=== PATIENT | female | born 1955 | race Caucasian/White ===

== ENCOUNTER 2016-09-26 20:26 | Emergency (ER) | payer OTHER ==
--- NOTE | 2016-09-26 22:58 | ED ORDER SUMMARY ---
..... Patient: FLETCHER WRIGHT OrderSheet [facility] VisitID: [id number] [address] [place] [address] 61y, F Registration Date/Time: 09/26/2016 ORDER SHEET Weight: 68.9 kg (stated) Allergies: Codeine, Oxycodone, Sulfa Antibiotics GENERAL ORDERS: UA-Culture if indicated Urgent (20:48 09/26/2016 Cesia R.NRenu per protocol) ([facility] 20:58 Nathanael GILBERT Brick Cleaner) (21:00 Cesia R.N.) MEDICATION ORDERS: IV FLUIDS: ORDER SHEET NOTES: [Electronically signed by Qing Frias R.N. (23:04 09/26/2016)] [Electronically signed by Lauryn Bhatia (23:05 09/26/2016)] [Electronically locked/signed by Qing Frias R.N. (23:04 09/26/2016)]
--- NOTE | 2016-09-26 22:58 | ED ORDER SUMMARY ---
..... Patient: FLETCHER WRIGHT OrderSheet [facility] VisitID: [id number] [address] [place] [address] 61y, F Registration Date/Time: 09/26/2016 ORDER SHEET Weight: 68.9 kg (stated) Allergies: Codeine, Oxycodone, Sulfa Antibiotics GENERAL ORDERS: UA-Culture if indicated Urgent (20:48 09/26/2016 Cesia R.NRenu per protocol) ([facility] 20:58 Nathanael GILBERT Regulatory Affairs Strategy Specialist) (21:00 Cesia R.N.) MEDICATION ORDERS: IV FLUIDS: ORDER SHEET NOTES: [Electronically signed by Qing Frias R.N. (23:04 09/26/2016)] [Electronically signed by Lauryn Bhatia (23:05 09/26/2016)] [Electronically locked/signed by Qing Frias R.N. (23:04 09/26/2016)]
--- NOTE | 2016-09-26 22:58 | ED NURSING NOTES ---
Clinical Report - Nurses [facility] [address] [place] [address] 09/26/2016 20:28 Patient: FLETCHER WRIGHT TRIAGE Triage time 20:38. Acuity: LEVEL 4. Chief Complaint: DYSURIA, URINARY URGENCY, URINARY FREQUENCY and FLANK PAIN. Alert. No acute distress. --20:47 Qing Frias R.N. 20:37 09/26/16. BP: 151/75. HR: 83. RR: 15 (regular and unlabored). O2 saturation: 100% on room air. Temp: 98.4 F (oral). Pain level now: 06/14. --20:47 Qing Frias R.N. Weight: 68.9 kg stated. Height/Length: 60 inches Per Patient. BMI: 29.7. --20:44 Qing Frias R.N. Medications Advil Oral, at bedtime, PM . --20:46 Qing Frias R.N. Allergies Codeine.(Anaphylaxis) --20:46 Qing Frias R.N. Oxycodone. Sulfa Antibiotics. --20:46 Qing Frias R.N. History <<STRICKEN ENTRY-- Arrived by private vehicle. Historian: patient. Accompanied by spouse. Primary physician (Leann). This started today. Onset. (dysuria began 32 days ago, pain began tonight). Treatment DIABETOLOGIST: (Aleve (last dose today at 1900),). PAST MEDICAL HX: Immunizations: status is unknown. SOCIAL HX: Heavy tobacco smoker (cigarette)- less than 1 pack per day. Occasional alcohol use. No drug use. NUTRITIONAL RISK ASSESSMENT: The nutritional risk assessment revealed no deficiencies. FUNCTIONAL ASSESSMENT: Functional assessment: no impairments noted. --20:47 Qing Frias R.N. --END STRIKE>> Correction --20:48 Qing Frias R.N. Arrived by private vehicle. Historian: patient. Accompanied by spouse. Primary physician (Leann). This started today. Onset. (dysuria began 3 days ago, pain began tonight). Treatment DIABETOLOGIST: (Aleve (last dose today at 1900),). PAST MEDICAL HX: Immunizations: status is unknown. SOCIAL HX: Heavy tobacco smoker (cigarette)- less than 1 pack per day. Occasional alcohol use. No drug use. NUTRITIONAL RISK ASSESSMENT: The nutritional risk assessment revealed no deficiencies. FUNCTIONAL ASSESSMENT: Functional assessment: no impairments noted. --20:48 Qing Frias R.N. ADDITIONAL SURGERIES: Shoulder Surgery. --20:49 Qing Frias R.N. Interventions ID band on patient. To treatment room. --20:47 Qing Frias R.N. PHYSICAL ASSESSMENT Ambulatory to room. Patient gowned. GENERAL / NEURO / PSYCH: Alert. Oriented X 4. Appears in no acute distress. HEENT: Mucous membranes are pink. RESPIRATORY: Respirations not labored. CVS: Capillary refill less than 2 seconds. SKIN: Skin is warm and dry. --20:47 Qing Frias R.N. NURSING PROGRESS NOTES Head of bed elevated. Two patient identifiers checked. Call light placed in reach. Side rails up x 1. Bed placed in lowest position. Brakes of bed on. --20:47 Qing Frias R.N. Patient ready for evaluation- chart flagged. --20:47 Qing Frias R.N. Patient ID band checked for patient name and birthdate: patient confirmed. Instructions provided to collect clean catch urine and patient verbalized understanding. Clean catch urine collected with return of yellow-colored clear urine; sample sent to lab. Specimen labeled in the presence of the patient. --20:52 Qing Frias R.N. 22:05 09/26/16. BP: 130/69. HR: 73. RR: 15 (regular and unlabored). O2 saturation: 100% on room air. --22:06 Qing Frias R.N. 22:33- pt ambulates to restroom. --22:33 Qing Frias R.N. DISPOSITION / DISCHARGE Condition at departure: stable. No learning barriers present. Discharge instructions provided and reviewed with the patient. Reviewed medication(s) side effects, precautions, dosing and course information. Prescription(s) given to the patient. Patient verbalized understanding. Written instructions provided in Togolese. The patient was discharged home and accompanied by spouse. She left the Emergency Department ambulatory and via private vehicle. Spouse driving. --23:04 Qing Frias R.N. 23:00 09/26/16. BP: 123/65. HR: 74. RR: 15. O2 saturation: 99% on room air. Temp: deferred. Whitten-Bull pain scale: 2/10. --23:04 Qing Frias R.N. Locked/Released at 09/26/2016 23:04 by Qing Frias R.N.
--- NOTE | 2016-09-26 22:58 | ED NURSING NOTES ---
Clinical Report - Nurses [facility] [address] [place] [address] 09/26/2016 20:28 Patient: FLETCHER WRIGHT TRIAGE Triage time 20:38. Acuity: LEVEL 4. Chief Complaint: DYSURIA, URINARY URGENCY, URINARY FREQUENCY and FLANK PAIN. Alert. No acute distress. --20:47 Qing Frias R.N. 20:37 09/26/16. BP: 151/75. HR: 83. RR: 15 (regular and unlabored). O2 saturation: 100% on room air. Temp: 98.4 F (oral). Pain level now: 06/14. --20:47 Qing Frias R.N. Weight: 68.9 kg stated. Height/Length: 60 inches Per Patient. BMI: 29.7. --20:44 Qing Frias R.N. Medications Advil Oral, at bedtime, PM . --20:46 Qing Frias R.N. Allergies Codeine.(Anaphylaxis) --20:46 Qing Frias R.N. Oxycodone. Sulfa Antibiotics. --20:46 Qing Frias R.N. History <<STRICKEN ENTRY-- Arrived by private vehicle. Historian: patient. Accompanied by spouse. Primary physician (Leann). This started today. Onset. (dysuria began 32 days ago, pain began tonight). 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 PAST MEDICAL HX: Immunizations: status is unknown. SOCIAL HX: Heavy tobacco smoker (cigarette)- less than 1 pack per day. Occasional alcohol use. No drug use. NUTRITIONAL RISK ASSESSMENT: The nutritional risk assessment revealed no deficiencies. FUNCTIONAL ASSESSMENT: Functional assessment: no impairments noted. --20:47 Qing Frias R.N. --END STRIKE>> Correction --20:48 Qing Frias R.N. Arrived by private vehicle. Historian: patient. Accompanied by spouse. Primary physician (Leann). This started today. Onset. (dysuria began 3 days ago, pain began tonight). 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 PAST MEDICAL HX: Immunizations: status is unknown. SOCIAL HX: Heavy tobacco smoker (cigarette)- less than 1 pack per day. Occasional alcohol use. No drug use. NUTRITIONAL RISK ASSESSMENT: The nutritional risk assessment revealed no deficiencies. FUNCTIONAL ASSESSMENT: Functional assessment: no impairments noted. --20:48 Qing Frias R.N. ADDITIONAL SURGERIES: Shoulder Surgery. --20:49 Qing Frias R.N. Interventions ID band on patient. To treatment room. --20:47 Qing Frias R.N. PHYSICAL ASSESSMENT Ambulatory to room. Patient gowned. GENERAL / NEURO / PSYCH: Alert. Oriented X 4. Appears in no acute distress. HEENT: Mucous membranes are pink. RESPIRATORY: Respirations not labored. CVS: Capillary refill less than 2 seconds. SKIN: Skin is warm and dry. --20:47 Qing Frias R.N. NURSING PROGRESS NOTES Head of bed elevated. Two patient identifiers checked. Call light placed in reach. Side rails up x 1. Bed placed in lowest position. Brakes of bed on. --20:47 Qing Frias R.N. Patient ready for evaluation- chart flagged. --20:47 Qing Frias R.N. Patient ID band checked for patient name and birthdate: patient confirmed. Instructions provided to collect clean catch urine and patient verbalized understanding. Clean catch urine collected with return of yellow-colored clear urine; sample sent to lab. Specimen labeled in the presence of the patient. --20:52 Qing Frias R.N. 22:05 09/26/16. BP: 130/69. HR: 73. RR: 15 (regular and unlabored). O2 saturation: 100% on room air. --22:06 Qing Frias R.N. 22:33- pt ambulates to restroom. --22:33 Qing Frias R.N. DISPOSITION / DISCHARGE Condition at departure: stable. No learning barriers present. Discharge instructions provided and reviewed with the patient. Reviewed medication(s) side effects, precautions, dosing and course information. Prescription(s) given to the patient. Patient verbalized understanding. Written instructions provided in Kittitian. The patient was discharged home and accompanied by spouse. She left the Emergency Department ambulatory and via private vehicle. Spouse driving. --23:04 Qing Frias R.N. 23:00 09/26/16. BP: 123/65. HR: 74. RR: 15. O2 saturation: 99% on room air. Temp: deferred. Whitten-Bull pain scale: 2/10. --23:04 Qing Frias R.N. Locked/Released at 09/26/2016 23:04 by Qing Frias R.N.
--- NOTE | 2016-09-26 22:58 | ED CLINICAL REPORT ---
Clinical Report - Physicians/Mid Levels [facility] [address] [place] [address] 09/26/2016 20:28 Patient: FLETCHER WRIGHT Time Seen: 20:44; initial patient contact, initial documentation, patient care assumed. Arrived- By private vehicle. Historian- patient. HISTORY OF PRESENT ILLNESS Chief Complaint: DYSURIA. This started about 3 days ago and still present (worse today). The symptoms are described as severe. Modifying factors- worsened by urination. Not relieved by anything. The patient has had mild left-sided flank pain. No abdominal pain, pelvic pain, vaginal pain, low back pain or hematuria. She has had severe pain with urination. It is described as "painful", has occurred during urination and has been associated with urgency and frequency. The patient has had urinary frequency. She has had urgency of urination. (x3 days ago when symptoms started, thought she was dehydrated because they were hiking in [place], started pushing water and drinking cranberry juice, that helped a little but today, it was worse). Similar symptoms previously: Once, as bad. ( feels exactly like her bladder infection after she had her hysterectomy years ago). Recent medical care: Not recently seen/assessed. REVIEW OF SYSTEMS No nausea, vomiting, diarrhea, fever or difficulty breathing. No chest pain. All systems otherwise negative, except as recorded above. PAST HISTORY See nurses notes. ( ADDITIONAL SURGERIES: Shoulder Surgery. --20:49 Qing Frias REarnest.). Urinary tract infection. Surgeries: Had hysterectomy. SOCIAL HISTORY Heavy tobacco smoker. Occasional alcohol use. No drug use. No recent travel. Is a local resident. She lives with spouse. FAMILY HISTORY Negative. ADDITIONAL NOTES The nursing notes have been reviewed with agreement regarding the chief complaint, HPI, ROS, PMH and patient medications and allergies. PHYSICAL EXAM Vital Signs: 09/26/2016 20:37 BP: 151/75. HR: 83. RR: 15. O2 saturation: 100%. Temp: 98.4 F. Pain level now: 4/10. Have been reviewed as normal and appear to be correct. Appearance: Alert. Oriented X3. No acute distress. HEENT: Normal external inspection. ENT: Pharynx normal. Neck: Neck supple. CVS: Heart sounds normal. Respiratory: No respiratory distress. Breath sounds normal. Chest nontender. Abdomen: Soft and nontender. Bowel sounds normal. No organomegaly. No mass. Back: Abnormal external inspection. Mild CVA tenderness on the left. Skin: Skin warm and dry. Normal skin color. No rash. Normal skin turgor. Extremities: Extremities nontender. No lower extremity edema. Neuro: Oriented X 3. Mood/affect normal. No motor deficit. No sensory deficit. LABS, X-RAYS, AND EKG Laboratory Tests: UA-Culture if indicated: (CHATO: 09/26/2016 20:42) ( MsgRcvd 09/26/2016 21:34) Final results Test Result Flag Units (Reference) URINE COLOR YELLOW URINE APPEARANCE CLEAR URINE GLUCOSE NEGATIVE (NEGATIVE) URINE BILIRUBIN NEGATIVE (NEGATIVE) URINE KETONE NEGATIVE (NEGATIVE) URINE SPECIFIC GRAVITY 1.015 (1.010-1.030) URINE PH 6.0 (5.0-8.0) URINE PROTEIN NEGATIVE (NEGATIVE) URINE UROBILINOGEN 0.2 EU/dL (0.2-1.0) URINE NITRITE NEGATIVE (NEGATIVE) URINE BLOOD 2+ (NEGATIVE) URINE LEUK ESTERASE TRACE (NEGATIVE) URINE RBC 1-3 rbc/hpf (0-1) URINE WBC 3-5 wbc/hpf (0-1) URINE EPITHELIAL CELLS RARE EPI/hpf (0-5) URINE BACTERIA MODERATE (2+ TO 3+) (NONE SEEN) URINE COMMENT CULTURE INDICATED URINE CULTURES ARE SET-UP BASED ON THE FOLLOWING CRITERIA:POSITIVE NITRITEPOSITIVE LEUKOCYTE ESTERASEGREATER THAN 10 WHITE BLOOD CELLSMODERATE (2+) OR GREATER BACTERIA . PROGRESS AND PROCEDURES Patient and spouse counseled in person regarding the patient's stable condition, test results and diagnosis. Differential Diagnosis: Other possible considerations: kidney stone, urosepsis, pyelo, uti, cystitis. Above considerations are based on history, physical exam, reassessment and laboratory data. Differential diagnosis was discussed with patient and patient's spouse. Disposition: Discharged home in good and unchanged condition (22:58). Condition: good and stable. CLINICAL IMPRESSION Acute urinary tract infection with cystitis. No pyelonephritis or hematuria. Not associated with indwelling catheter or obstruction. INSTRUCTIONS Drink plenty of fluids for the next 24 hours until better. Warnings: GENERAL WARNINGS: Return or contact your physician immediately if your condition worsens or changes unexpectedly, if not improving as expected, or if other problems arise. Specifically return if problem worsens. Prescription Medications: Pyridium 200 mg: take 1 orally every 8 hours as needed for urinary problems. Dispense six (6). No refills. Substitution is permissible. Macrobid 100 mg: Take 1 capsule orally every 12 hours for 7 days. No refills. Substitution is permissible. Follow-up: Follow up with your doctor in about three days even if well. Call for an appointment. Summary of care provided to patient. Understanding of the discharge instructions verbalized by patient. (Electronically signed by Lauryn Bhatia A.R.N.P. 09/26/2016 23:05)
--- NOTE | 2016-09-26 23:05 | ED DISCHARGE INSTRUCTIONS ---
Patient: FLETCHER WRIGHT General Instructions [facility] VisitID: [id number] [address] [place] [address] 61y, F Registration Date/Time: 09/26/2016 Acute urinary tract infection with cystitis. No pyelonephritis or hematuria. Not associated with indwelling catheter or obstruction. INSTRUCTIONS Drink plenty of fluids for the next 24 hours until better. Warnings: GENERAL WARNINGS: Return or contact your physician immediately if your condition worsens or changes unexpectedly, if not improving as expected, or if other problems arise. Specifically return if problem worsens. Prescription Medications: Pyridium 200 mg: take 1 orally every 8 hours as needed for urinary problems. Dispense six (6). No refills. Substitution is permissible. Macrobid 100 mg: Take 1 capsule orally every 12 hours for 7 days. No refills. Substitution is permissible. Follow-up: Follow up with your doctor in about three days even if well. Call for an appointment. Summary of care provided to patient. Understanding of the discharge instructions verbalized by patient. ADDITIONAL INFORMATION Bladder Infection,Female (Adult) A bladder infection ("cystitis" or "UTI") usually causes a constant urge to urinate and a burning when passing urine. Urine may be cloudy, smelly or dark. There may be pain in the lower abdomen. A bladder infection occurs when bacteria from the vaginal area enter the bladder opening (urethra). This can occur from sexual intercourse, wearing tight clothing, dehydration and other factors. Home Care: Drink lots of fluids (at least 6-8 glasses a day, unless you must restrict fluids for other medical reasons). This will force the medicine into your urinary system and flush the bacteria out of your body. Avoid sexual intercourse until your symptoms are gone. Avoid caffeine, alcohol and spicy foods. These can irritate the bladder. A bladder infection is treated with antibiotics. You may also be given Pyridium (generic = phenazopyridine) to reduce the burning sensation. This medicine will cause your urine to become a bright orange color. The orange urine may stain clothing. You may wear a pad or panty-liner to protect clothing. Preventing Future Infections: Always wipe from front to back after a bowel movement. Keep the genital area clean and dry. Drink plenty of fluids each day to avoid dehydration. Both sexual partners should wash before intercourse. Urinate right after intercourse to flush out the bladder. Wear cotton underwear and cotton-lined panty hose; avoid tight-fitting pants. If you are on control pills and are having frequent bladder infections, discuss with your doctor. Follow Up: Return to this facility or see your doctor if ALL symptoms are not gone after three days of treatment. Get Prompt Medical Attention if any of the following occur: Fever of 100.4F (38C) or higher, or as directed by your healthcare provider No improvement by the third day of treatment Increasing back or abdominal pain Repeated vomiting; unable to keep medicine down Weakness, dizziness or fainting Vaginal discharge Pain, redness or swelling in the labia (outer vaginal area) Phenazopyridine Hydrochloride Oral tablet What is this medicine? PHENAZOPYRIDINE (fen az oh PEER i camilo) is a pain reliever. It is used to stop the pain, burning, or discomfort caused by infection or irritation of the urinary tract. This medicine is not an antibiotic. It will not cure a urinary tract infection. How should I use this medicine? Take this medicine by mouth with a glass of water. Follow the directions on the prescription label. Take after meals. Take your doses at regular intervals. Do not take your medicine more often than directed. Do not skip doses or stop your medicine early even if you feel better. Do not stop taking except on your doctor's advice. Talk to your content development specialist regarding the use of this medicine in children. Special care may be needed. What side effects may I notice from receiving this medicine? Side effects that you should report to your doctor or health morning caregiver as soon as possible: allergic reactions like skin rash, itching or hives, swelling of the face, lips, or tongue blue or purple color of the skin difficulty breathing fever less urine unusual bleeding, bruising unusual tired, weak vomiting yellowing of the eyes or skin Side effects that usually do not require medical attention (report to your doctor or health morning caregiver if they continue or are bothersome): dark urine headache stomach upset What may interact with this medicine? Interactions are not expected. What if I miss a dose? If you miss a dose, take it as soon as you can. If it is almost time for your next dose, take only that dose. Do not take double or extra doses. Where should I keep my medicine? Keep out of the reach of children. Store at room temperature between 15 and 30 degrees C (59 and 86 degrees F). Protect from light and moisture. Throw away any unused medicine after the expiration date. What should I tell my health care provider before I take this medicine? They need to know if you have any of these conditions: [id number]-quxevordt dehydrogenase (G6PD) deficiency kidney disease an unusual or allergic reaction to phenazopyridine, other medicines, foods, dyes, or preservatives or trying to get breast-feeding What should I watch for while using this medicine? Tell your doctor or health morning caregiver if your symptoms do not improve or if they get worse. This medicine colors body fluids red. This effect is harmless and will go away after you are done taking the medicine. It will change urine to an dark orange or red color. The red color may stain clothing. Soft contact lenses may become permanently stained. It is best not to wear soft contact lenses while taking this medicine. If you are diabetic you may get a false positive result for sugar in your urine. Talk to your health care provider. Nitrofurantoin, Nitrofurantoin, Macrocrystalline Oral capsule What is this medicine? NITROFURANTOIN (teo tk virk AN toyn) is an antibiotic. It is used to treat urinary tract infections. How should I use this medicine? Take this medicine by mouth with a glass of water. Follow the directions on the prescription label. Take this medicine with food or milk. Take your doses at regular intervals. Do not take your medicine more often than directed. Do not stop taking except on your doctor's advice. Talk to your content development specialist regarding the use of this medicine in children. While this drug may be prescribed for selected conditions, precautions do apply. What side effects may I notice from receiving this medicine? Side effects that you should report to your doctor or health morning caregiver as soon as possible: allergic reactions like skin rash or hives, swelling of the face, lips, or tongue chest pain cough difficulty breathing dizziness, drowsiness fever or infection joint aches or pains pale or blue-tinted skin redness, blistering, peeling or loosening of the skin, including inside the mouth tingling, burning, pain, or numbness in hands or feet unusual bleeding or bruising unusually weak or tired yellowing of eyes or skin Side effects that usually do not require medical attention (report to your doctor or health morning caregiver if they continue or are bothersome): dark urine diarrhea headache loss of appetite nausea or vomiting temporary hair loss What may interact with this medicine? antacids containing magnesium trisilicate probenecid quinolone antibiotics like ciprofloxacin, lomefloxacin, norfloxacin and ofloxacin sulfinpyrazone What if I miss a dose? If you miss a dose, take it as soon as you can. If it is almost time for your next dose, take only that dose. Do not take double or extra doses. Where should I keep my medicine? Keep out of the reach of children. Store at room temperature between 15 and 30 degrees C (59 and 86 degrees F). Protect from light. Throw away any unused medicine after the expiration date. What should I tell my health care provider before I take this medicine? They need to know if you have any of these conditions: anemia diabetes [id number]-6-[id number] dehydrogenase deficiency kidney disease liver disease lung disease other chronic illness an unusual or allergic reaction to nitrofurantoin, other antibiotics, other medicines, foods, dyes or preservatives or trying to get breast-feeding What should I watch for while using this medicine? Tell your doctor or health morning caregiver if your symptoms do not improve or if you get new symptoms. Drink several glasses of water a day. If you are taking this medicine for a long time, visit your doctor for regular checks on your progress. If you are diabetic, you may get a false positive result for sugar in your urine with certain brands of urine tests. Check with your doctor. You have been given the following additional information: Bladder Infection, Female (Adult) Phenazopyridine Hydrochloride Oral tablet Nitrofurantoin, Nitrofurantoin, Macrocrystalline Oral capsule (Electronically signed by Lauryn Bhatia A.R.N.P. 09/26/2016 23:05)
--- NOTE | 2016-09-26 23:05 | ED DISCHARGE INSTRUCTIONS ---
Patient: FLETCHER WRIGHT General Instructions [facility] VisitID: [id number] [address] [place] [address] 61y, F Registration Date/Time: 09/26/2016 Acute urinary tract infection with cystitis. No pyelonephritis or hematuria. Not associated with indwelling catheter or obstruction. INSTRUCTIONS Drink plenty of fluids for the next 24 hours until better. Warnings: GENERAL WARNINGS: Return or contact your physician immediately if your condition worsens or changes unexpectedly, if not improving as expected, or if other problems arise. Specifically return if problem worsens. Prescription Medications: Pyridium 200 mg: take 1 orally every 8 hours as needed for urinary problems. Dispense six (6). No refills. Substitution is permissible. Macrobid 100 mg: Take 1 capsule orally every 12 hours for 7 days. No refills. Substitution is permissible. Follow-up: Follow up with your doctor in about three days even if well. Call for an appointment. Summary of care provided to patient. Understanding of the discharge instructions verbalized by patient. ADDITIONAL INFORMATION Bladder Infection,Female (Adult) A bladder infection ("cystitis" or "UTI") usually causes a constant urge to urinate and a burning when passing urine. Urine may be cloudy, smelly or dark. There may be pain in the lower abdomen. A bladder infection occurs when bacteria from the vaginal area enter the bladder opening (urethra). This can occur from sexual intercourse, wearing tight clothing, dehydration and other factors. Home Care: Drink lots of fluids (at least 6-8 glasses a day, unless you must restrict fluids for other medical reasons). This will force the medicine into your urinary system and flush the bacteria out of your body. Avoid sexual intercourse until your symptoms are gone. Avoid caffeine, alcohol and spicy foods. These can irritate the bladder. A bladder infection is treated with antibiotics. You may also be given Pyridium (generic = phenazopyridine) to reduce the burning sensation. This medicine will cause your urine to become a bright orange color. The orange urine may stain clothing. You may wear a pad or panty-liner to protect clothing. Preventing Future Infections: Always wipe from front to back after a bowel movement. Keep the genital area clean and dry. Drink plenty of fluids each day to avoid dehydration. Both sexual partners should wash before intercourse. Urinate right after intercourse to flush out the bladder. Wear cotton underwear and cotton-lined panty hose; avoid tight-fitting pants. If you are on control pills and are having frequent bladder infections, discuss with your doctor. Follow Up: Return to this facility or see your doctor if ALL symptoms are not gone after three days of treatment. Get Prompt Medical Attention if any of the following occur: Fever of 100.4F (38C) or higher, or as directed by your healthcare provider No improvement by the third day of treatment Increasing back or abdominal pain Repeated vomiting; unable to keep medicine down Weakness, dizziness or fainting Vaginal discharge Pain, redness or swelling in the labia (outer vaginal area) Phenazopyridine Hydrochloride Oral tablet What is this medicine? PHENAZOPYRIDINE (fen az oh PEER i camilo) is a pain reliever. It is used to stop the pain, burning, or discomfort caused by infection or irritation of the urinary tract. This medicine is not an antibiotic. It will not cure a urinary tract infection. How should I use this medicine? Take this medicine by mouth with a glass of water. Follow the directions on the prescription label. Take after meals. Take your doses at regular intervals. Do not take your medicine more often than directed. Do not skip doses or stop your medicine early even if you feel better. Do not stop taking except on your doctor's advice. Talk to your waiter/waitress club regarding the use of this medicine in children. Special care may be needed. What side effects may I notice from receiving this medicine? Side effects that you should report to your doctor or health rn homecare as soon as possible: allergic reactions like skin rash, itching or hives, swelling of the face, lips, or tongue blue or purple color of the skin difficulty breathing fever less urine unusual bleeding, bruising unusual tired, weak vomiting yellowing of the eyes or skin Side effects that usually do not require medical attention (report to your doctor or health rn homecare if they continue or are bothersome): dark urine headache stomach upset What may interact with this medicine? Interactions are not expected. What if I miss a dose? If you miss a dose, take it as soon as you can. If it is almost time for your next dose, take only that dose. Do not take double or extra doses. Where should I keep my medicine? Keep out of the reach of children. Store at room temperature between 15 and 30 degrees C (59 and 86 degrees F). Protect from light and moisture. Throw away any unused medicine after the expiration date. What should I tell my health care provider before I take this medicine? They need to know if you have any of these conditions: hdzixex-[id number] dehydrogenase (G6PD) deficiency kidney disease an unusual or allergic reaction to phenazopyridine, other medicines, foods, dyes, or preservatives or trying to get breast-feeding What should I watch for while using this medicine? Tell your doctor or health rn homecare if your symptoms do not improve or if they get worse. This medicine colors body fluids red. This effect is harmless and will go away after you are done taking the medicine. It will change urine to an dark orange or red color. The red color may stain clothing. Soft contact lenses may become permanently stained. It is best not to wear soft contact lenses while taking this medicine. If you are diabetic you may get a false positive result for sugar in your urine. Talk to your health care provider. Nitrofurantoin, Nitrofurantoin, Macrocrystalline Oral capsule What is this medicine? NITROFURANTOIN (teo tk virk AN toyn) is an antibiotic. It is used to treat urinary tract infections. How should I use this medicine? Take this medicine by mouth with a glass of water. Follow the directions on the prescription label. Take this medicine with food or milk. Take your doses at regular intervals. Do not take your medicine more often than directed. Do not stop taking except on your doctor's advice. Talk to your waiter/waitress club regarding the use of this medicine in children. While this drug may be prescribed for selected conditions, precautions do apply. What side effects may I notice from receiving this medicine? Side effects that you should report to your doctor or health rn homecare as soon as possible: allergic reactions like skin rash or hives, swelling of the face, lips, or tongue chest pain cough difficulty breathing dizziness, drowsiness fever or infection joint aches or pains pale or blue-tinted skin redness, blistering, peeling or loosening of the skin, including inside the mouth tingling, burning, pain, or numbness in hands or feet unusual bleeding or bruising unusually weak or tired yellowing of eyes or skin Side effects that usually do not require medical attention (report to your doctor or health rn homecare if they continue or are bothersome): dark urine diarrhea headache loss of appetite nausea or vomiting temporary hair loss What may interact with this medicine? antacids containing magnesium trisilicate probenecid quinolone antibiotics like ciprofloxacin, lomefloxacin, norfloxacin and ofloxacin sulfinpyrazone What if I miss a dose? If you miss a dose, take it as soon as you can. If it is almost time for your next dose, take only that dose. Do not take double or extra doses. Where should I keep my medicine? Keep out of the reach of children. Store at room temperature between 15 and 30 degrees C (59 and 86 degrees F). Protect from light. Throw away any unused medicine after the expiration date. What should I tell my health care provider before I take this medicine? They need to know if you have any of these conditions: anemia diabetes xdugwzn-[id number]-epnneawkh dehydrogenase deficiency kidney disease liver disease lung disease other chronic illness an unusual or allergic reaction to nitrofurantoin, other antibiotics, other medicines, foods, dyes or preservatives or trying to get breast-feeding What should I watch for while using this medicine? Tell your doctor or health rn homecare if your symptoms do not improve or if you get new symptoms. Drink several glasses of water a day. If you are taking this medicine for a long time, visit your doctor for regular checks on your progress. If you are diabetic, you may get a false positive result for sugar in your urine with certain brands of urine tests. Check with your doctor. You have been given the following additional information: Bladder Infection, Female (Adult) Phenazopyridine Hydrochloride Oral tablet Nitrofurantoin, Nitrofurantoin, Macrocrystalline Oral capsule (Electronically signed by Lauryn Bhatia A.R.N.P. 09/26/2016 23:05)
--- NOTE | 2016-09-26 23:06 | ED MAR SUMMARY ---
..... Medication Administration Record [facility] [address], [place] [id number] Patient: FLETCHER WRIGHT Visit ID: [id number] 61y, F Weight: 68.9 kg Height/Length: 60 in BMI: 29.7 ALLERGIES: Oxycodone, Sulfa Antibiotics, Codeine
--- NOTE | 2016-09-26 23:06 | ED MED RECONCILIATION SUMMARY ---
Patient: FLETCHER WRIGHT Medication Reconciliation Report [facility] VisitID: [id number] [address] [place] [address] 61y, F Registration Date/Time: 09/26/2016 Weight: 68.9 kg Height/Length: 60 in. BMI: 29.7 ALLERGIES: Codeine, Oxycodone, Sulfa Antibiotics The patient's Home Medications are listed below: THE FOLLOWING MEDICATIONS NEED TO BE RECONCILED: Advil Oral, at bedtime, PM The source(s) of the original Home Medication information: Not obtained. The following Medications were given to the patient in the Emergency Department: None. The following Medications were prescribed to the patient: Pyridium 200 mg: take 1 orally every 8 hours as needed for urinary problems. Dispense six (6). No refills. Substitution is permissible. -- Lauryn Bhatia, Macario.R.N.P. Macrobid 100 mg: Take 1 capsule orally every 12 hours for 7 days. No refills. Substitution is permissible. -- Lauryn Bhatia A.R.N.P.
--- NOTE | 2016-09-26 23:06 | ED MAR SUMMARY ---
..... Medication Administration Record [facility] [address] [place], [place] [id number] Patient: FLETCHER WRIGHT Visit ID: [id number] 61y, F Weight: 68.9 kg Height/Length: 60 in BMI: 29.7 ALLERGIES: Oxycodone, Sulfa Antibiotics, Codeine
--- NOTE | 2016-09-26 23:06 | ED MED RECONCILIATION SUMMARY ---
Patient: FLETCHER WRIGHT Medication Reconciliation Report [facility] VisitID: [id number] [address] [place] [address] 61y, F Registration Date/Time: 09/26/2016 Weight: 68.9 kg Height/Length: 60 in. BMI: 29.7 ALLERGIES: Codeine, Oxycodone, Sulfa Antibiotics The patient's Home Medications are listed below: THE FOLLOWING MEDICATIONS NEED TO BE RECONCILED: Advil Oral, at bedtime, PM The source(s) of the original Home Medication information: Not obtained. The following Medications were given to the patient in the Emergency Department: None. The following Medications were prescribed to the patient: Pyridium 200 mg: take 1 orally every 8 hours as needed for urinary problems. Dispense six (6). No refills. Substitution is permissible. -- Lauryn Bhatia, Macario.R.N.P. Macrobid 100 mg: Take 1 capsule orally every 12 hours for 7 days. No refills. Substitution is permissible. -- Lauryn Bhatia A.R.N.P.
== END 2016-09-26 20:31 | disposition home or self-care (01) ==
LOC: ED SRH 20:26
DX: N30.00 Acute cystitis without hematuria (principal); Z88.2 Allergy status to sulfonamides; Z88.5 Allergy status to narcotic agent; F17.210 Nicotine dependence, cigarettes, uncomplicated
CPT/HCPCS: 90004; 90469